=== PATIENT | female | born 1935 | race African-American/Black ===

== ENCOUNTER 2018-11-04 23:23 | Inpatient (IN) | payer MEDICARE, OTHER ==
[~2018-11-04] VITALS: Ht 162.6 cm; Wt 60.3 kg
[~2018-11-04 23:23] MED LIST: ACTOS; AMLODIPINE; ASPIRIN; CLONIDINE; GLIPIZIDE; LASIX; LIPITOR; METFORMIN PO
[2018-11-05] MEDS ORDERED: CLONIDINE 0.1MG TABLET PO ONE (01:15)
[2018-11-05 01:18] LABS: BASOPHILS % 0.9 % (0.0-2.0); EOSINOPHILS % 2.1 % (0.0-5.0); HEMATOCRIT. 36.8 % (36.0-48.0); HEMOGLOBIN. 12.2 g/dL (12.0-16.0); LYMPHOCYTES % 22.3 % (20.0-50.0); MEAN CORPUSCULAR HEMOGLOBIN 28.5 pg (28.0-32.0); MEAN PLATELET VOLUME 6.4 fl (7.4-10.4); MONOCYTES % 6.7 % (2.0-8.0); PLATELET 446 x1000/uL (130-400); RED BLOOD CELL COUNT 4.28 mill/uL (4.2-5.4); RED CELL DISTRIBUTION WIDTH 16.9 % (11.6-14.6)
[2018-11-05 01:24] LABS: CHLORIDE 105 mEq/L (98-107)
[2018-11-05 01:27] LABS: CLARITY URINE CLEAR (CLEAR); COLOR URINE YELLOW (YELLOW); KETONES URINE NEGATIVE (NEGATIVE); LEUKOCYTE ESTERASE URINE TRACE (NEGATIVE); NITRITE URINE NEGATIVE (NEGATIVE); OCCULT BLOOD URINE NEGATIVE (NEGATIVE); PROTEIN URINE NEGATIVE (NEGATIVE); SPECIFIC GRAVITY URINE 1.006 (1.005-1.030); UROBILINOGEN URINE 0.2 E.U./dL (0.2-1.0)
[2018-11-05 01:46] LABS: INR 1.1; PROTHROMBIN TIME 11.3 sec (9.6-11.0)
[2018-11-05] MEDS ORDERED: ASPIRIN 81MG TABLET PO ONE (02:30)
[2018-11-05 07:04] VITALS: BP 162/70
[2018-11-05 08:00] VITALS: BP 157/79
[2018-11-05] MEDS ORDERED: DOCUSATE SODIUM 100MG CAPSULE PO PRN (08:45)
[2018-11-05] MEDS ORDERED: ONDANSETRON HCL 4MG/2ML INJ IV PRN (08:45)
[2018-11-05] MEDS ORDERED: ACETAMINOPHEN 325MG TABLET PO PRN (08:45)
[2018-11-05] MEDS ORDERED: ENOXAPARIN 40MG/0.4ML SYR SUBCUT SCH (09:00)
[2018-11-05] MEDS ORDERED: DEXT 5%/0.45% NACL 1000ML 1,000 ML IV SCH (09:00)
[2018-11-05 09:54] LABS: T4 FREE 1.29 ng/dL (0.76-1.46)
[2018-11-05] MEDS: ASPIRIN 81MG EC TABLET PO SCH (10:02)
[2018-11-05 10:22] VITALS: BP 162/70
[2018-11-05 12:00] VITALS: BP 163/72
[2018-11-05 12:58] LABS: HEMATOCRIT 35.4 % (36.0-48.0); HEMOGLOBIN 11.5 g/dL (12.0-16.0); MEAN CORPUSCULAR HEMOGLOBIN 28.1 pg (28.0-32.0); MEAN CORPUSCULAR VOLUME 86.2 fL (81.0-99.0); PLATELET 437 x1000/uL (130-400); RED CELL DISTRIBUTION WIDTH 16.9 % (11.6-14.6)
[2018-11-05 13:02] LABS: CHLORIDE 105 mEq/L (98-107)
[2018-11-05] MEDS: CLONIDINE 0.1MG TABLET PO PRN (13:10)
[2018-11-05 13:11] LABS: LDL CHOLESTEROL 67 mg/dL (5-100)
[2018-11-05 13:13] LABS: HDL CHOLESTEROL 50 mg/dL (40-59)
[2018-11-05 16:00] VITALS: BP 154/86
[2018-11-05 16:21] LABS: CREATINE KINASE 130 IU/L (26-192)
[2018-11-05 16:22] LABS: CREATINE KINASE MB FRACTION < 1.0 ng/mL (0.5-3.6)
[2018-11-05] MEDS ORDERED: CEPH500T MT (18:00)
[2018-11-05] MEDS ORDERED: LISI-604 MT (18:00)
[2018-11-05] MEDS ORDERED: GABA-531 MT (18:00)
[2018-11-05] MEDS ORDERED: CLON-457 MT (18:00)
[2018-11-05] MEDS ORDERED: SULF-288 MT (18:00)
[2018-11-05 20:00] VITALS: BP 158/84
[2018-11-05] MEDS ORDERED: DEXTROSE 50% WATER 50ML SYRINGE IV PRN (20:45)
[2018-11-05] MEDS: INSULIN LISPRO 100 UNITS/ML SUBCUT SCH (21:00)
[2018-11-05] MEDS: BLOOD SUGAR DIAGNOSTIC STRIP TEST SCH (21:39)
[2018-11-05] MEDS: ENOXAPARIN 60MG/0.6ML SYR SUBCUT SCH (23:14)
[2018-11-06] VITALS: BP 150/72
[2018-11-06 01:22] LABS: CREATINE KINASE 119 IU/L (26-192)
[2018-11-06 01:23] LABS: CREATINE KINASE MB FRACTION < 1.0 ng/mL (0.5-3.6)
[2018-11-06 04:00] VITALS: BP 150/82
[2018-11-06] MEDS: CLONIDINE 0.1MG TABLET PO PRN (05:13)
[2018-11-06] MEDS: BLOOD SUGAR DIAGNOSTIC STRIP TEST SCH ×4 (05:13→22:12)
[2018-11-06 08:00] VITALS: BP 159/77
[2018-11-06] MEDS: INSULIN LISPRO 100 UNITS/ML SUBCUT SCH ×4 (08:10→22:13)
[2018-11-06] MEDS: ASPIRIN 81MG EC TABLET PO SCH (08:50)
[2018-11-06 12:00] VITALS: BP 117/62
[2018-11-06] MEDS: ENOXAPARIN 60MG/0.6ML SYR SUBCUT SCH ×2 (12:34→22:12)
[2018-11-06 16:00] VITALS: BP 132/61
[2018-11-06 20:00] VITALS: BP 134/63
[2018-11-07] VITALS (11 sets, daily range): BP systolic 120–167; BP diastolic 61–87
[2018-11-07] MEDS: BLOOD SUGAR DIAGNOSTIC STRIP TEST SCH ×3 (06:20→17:25)
[2018-11-07] MEDS ORDERED: CEFAZOLIN 1000MG PREMIX 50 ML IV ONE ×2 (07:30→08:33)
[2018-11-07] MEDS: INSULIN LISPRO 100 UNITS/ML SUBCUT SCH ×2 (08:10→12:40)
[2018-11-07] MEDS ORDERED: IOHEXOL-300 100 ML BOTTLE ONE (08:30)
[2018-11-07] MEDS ORDERED: LIDOCAINE HCL 1% 20ML VIAL (Pyxis) INJ ONE (08:30)
[2018-11-07] MEDS ORDERED: SODIUM BICARBONATE 4% (2.4MEQ) 5ML VIAL IV ONE (08:30)
[2018-11-07] MEDS ORDERED: IOHEXOL-300 50 ML BOTTLE IV ONE (08:42)
[2018-11-07] MEDS: ASPIRIN 81MG EC TABLET PO SCH (09:00)
[2018-11-07] MEDS: CLONIDINE 0.1MG TABLET PO PRN (13:03)
[2018-11-07] MEDS: ENOXAPARIN 60MG/0.6ML SYR SUBCUT SCH (14:13)
== END 2018-11-07 18:03 | disposition home health service (06) | DRG 253 ==
LOC: ER 23:23 → 7WST 11-05 02:21 → EDBEDREQTM 11-05 02:24 → EDBEDREQ 11-05 02:24 → ENRESERV 11-05 05:45
PROVIDERS: ADMIT Internal Medicine; ATTEND Internal Medicine
PROC: 06H03DZ Insertion of Intraluminal Device into Inferior Vena Cava, Percutaneous Approach (ICD-10-PCS; principal; 2018-11-07)
PROC: B5191ZA Fluoroscopy of Inferior Vena Cava using Low Osmolar Contrast, Guidance (ICD-10-PCS; 2018-11-07)
PROC: B549ZZA Ultrasonography of Inferior Vena Cava, Guidance (ICD-10-PCS; 2018-11-07)
DX: I82.412 Acute embolism and thrombosis of left femoral vein (principal); E16.2 Hypoglycemia, unspecified; D68.59 Other primary thrombophilia; E87.5 Hyperkalemia; I10 Essential (primary) hypertension; I45.81 Long QT syndrome; D47.3 Essential (hemorrhagic) thrombocythemia; Z79.899 Other long term (current) drug therapy
CPT/HCPCS: 36415; 37191; 71045; 80048; 80061; 82550; 82553; 82962; 83036; 83605; 84439; 84443; 84484; 85027; 93005; 93970; 97161; 99285; C1769; C1880; J0690; J1644; J1650; J3490; Q9967

== ENCOUNTER 2019-02-19 08:19 | Emergency (ER) | payer MEDICARE ==
[~2019-02-19] VITALS: Ht 162.6 cm; Wt 62.0 kg
[~2019-02-19 08:19] MED LIST changes: +CEPH500T MT; +CLON-457 MT; +GABA-531 MT; +LISI-604 MT; +SULF-288 MT
[2019-02-19 10:02] LABS: BASOPHILS % 0.8 % (0.0-2.0); EOSINOPHILS % 0.2 % (0.0-5.0); HEMATOCRIT. 35.5 % (36.0-48.0); LYMPHOCYTES % 7.9 % (20.0-50.0); MEAN CORPUSCULAR HEMOGLOBIN 29.4 pg (28.0-32.0); MEAN CORPUSCULAR VOLUME 87.4 fL (81.0-99.0); MEAN PLATELET VOLUME 6.7 fl (7.4-10.4); MONOCYTES % 3.6 % (2.0-8.0); NEUTROPHILS % 87.5 % (40.0-76.0); PLATELET 417 x1000/uL (130-400); RED BLOOD CELL COUNT 4.07 mill/uL (4.2-5.4); RED CELL DISTRIBUTION WIDTH 15.6 % (11.6-14.6)
[2019-02-19 11:50] LABS: CHLORIDE 100 mEq/L (98-107)
[2019-02-19 12:55] VITALS: BP 137/70
== END 2019-02-19 13:00 | disposition home or self-care (01) ==
LOC: ER 08:19
DX: E11.649 Type 2 diabetes mellitus with hypoglycemia without coma (principal); Z79.82 Long term (current) use of aspirin
CPT/HCPCS: 36415; 82962; 93005; 99284

== ENCOUNTER 2019-02-22 09:55 | Emergency (ER) | payer MEDICARE ==
[~2019-02-22] VITALS: Ht 165.1 cm; Wt 65.0 kg
[2019-02-22 12:41] LABS: BASOPHILS % 0.6 % (0.0-2.0); EOSINOPHILS % 0.6 % (0.0-5.0); HEMATOCRIT. 36.3 % (36.0-48.0); HEMOGLOBIN. 12.3 g/dL (12.0-16.0); LYMPHOCYTES % 27.3 % (20.0-50.0); MEAN CORPUSCULAR HEMOGLOBIN 29.3 pg (28.0-32.0); MEAN CORPUSCULAR VOLUME 86.6 fL (81.0-99.0); MEAN PLATELET VOLUME 6.5 fl (7.4-10.4); MONOCYTES % 7.4 % (2.0-8.0); NEUTROPHILS % 64.1 % (40.0-76.0); PLATELET 444 x1000/uL (130-400); RED CELL DISTRIBUTION WIDTH 15.5 % (11.6-14.6)
[2019-02-22 12:43] LABS: CLARITY URINE CLEAR (CLEAR); COLOR URINE YELLOW (YELLOW); KETONES URINE NEGATIVE (NEGATIVE); LEUKOCYTE ESTERASE URINE TRACE (NEGATIVE); NITRITE URINE NEGATIVE (NEGATIVE); OCCULT BLOOD URINE NEGATIVE (NEGATIVE); PH URINE 5.5 (4.5-8.0); PROTEIN URINE NEGATIVE (NEGATIVE); SPECIFIC GRAVITY URINE 1.015 (1.005-1.030)
[2019-02-22 15:27] VITALS: BP 100/60
== END 2019-02-22 15:45 | disposition home or self-care (01) ==
LOC: ER 10:12
DX: E11.649 Type 2 diabetes mellitus with hypoglycemia without coma (principal); Z79.899 Other long term (current) drug therapy; I10 Essential (primary) hypertension
CPT/HCPCS: 36415; 80048; 82962; 99283

== ENCOUNTER 2019-03-23 11:54 | Emergency (ER) | payer MEDICARE ==
[~2019-03-23] VITALS: Ht 165.1 cm; Wt 75.0 kg
[2019-03-23] MEDS ORDERED: SODIUM CHLORIDE 0.9% 1000ML BAG (SEPSIS BOLUS) IV ONE (12:15)
[2019-03-23 12:56] LABS: CHLORIDE 103 mEq/L (98-107)
[2019-03-23 13:03] LABS: BASOPHILS % 0.4 % (0.0-2.0); EOSINOPHILS % 0.4 % (0.0-5.0); HEMATOCRIT. 33.7 % (36.0-48.0); HEMOGLOBIN. 11.5 g/dL (12.0-16.0); LYMPHOCYTES % 11.9 % (20.0-50.0); MEAN CORPUSCULAR HEMOGLOBIN 29.7 pg (28.0-32.0); MEAN CORPUSCULAR VOLUME 87.3 fL (81.0-99.0); MEAN PLATELET VOLUME 6.7 fl (7.4-10.4); MONOCYTES % 3.1 % (2.0-8.0); NEUTROPHILS % 84.2 % (40.0-76.0); PLATELET 313 x1000/uL (130-400); RED BLOOD CELL COUNT 3.86 mill/uL (4.2-5.4); RED CELL DISTRIBUTION WIDTH 14.3 % (11.6-14.6)
[2019-03-23 13:08] LABS: BETA HYDROXYBUTYRATE 0.1 mMol/L (0.0-0.3)
[2019-03-23 14:38] LABS: CLARITY URINE CLEAR (CLEAR); COLOR URINE YELLOW (YELLOW); KETONES URINE NEGATIVE (NEGATIVE); LEUKOCYTE ESTERASE URINE TRACE (NEGATIVE); NITRITE URINE NEGATIVE (NEGATIVE); OCCULT BLOOD URINE NEGATIVE (NEGATIVE); PROTEIN URINE NEGATIVE (NEGATIVE); UROBILINOGEN URINE 0.2 E.U./dL (0.2-1.0)
[2019-03-23 14:54] LABS: *BARBITURATES SCREEN URINE NEGATIVE (NEGATIVE); *BENZODIAZEPINES SCREEN URINE NEGATIVE (NEGATIVE); *COCAINE SCREEN URINE NEGATIVE (NEGATIVE)
[2019-03-23 14:55] LABS: *AMPHETAMINES SCREEN URINE NEGATIVE (NEGATIVE); CANNABINOID URINE SCREEN NEGATIVE (NEGATIVE); METHADONE URINE SCREEN NEGATIVE (NEGATIVE); OPIATES URINE SCREEN NEGATIVE (NEGATIVE); PHENCYCLIDINE URINE SCREEN NEGATIVE (NEGATIVE)
[2019-03-23] MEDS ORDERED: SODIUM CHLORIDE 0.45% 1,000 ML IV SCH (22:31)
[2019-03-23] MEDS ORDERED: ACETAMINOPHEN 325MG TABLET PO PRN (22:45)
[2019-03-23] MEDS ORDERED: IPRATROPIUM/ALBUTEROL 0.5-3(2.5)MG/3ML NEB HHN PRN (22:45)
[2019-03-23] MEDS ORDERED: CLONIDINE 0.1MG TABLET PO PRN (22:45)
[2019-03-23] MEDS ORDERED: HYDROCODONE/ACETAMINOPHEN 5/325MG TABLET PO PRN (22:45)
[2019-03-23] MEDS ORDERED: ENOXAPARIN 40MG/0.4ML SYR SUBCUT SCH (22:45)
[2019-03-24 00:32] VITALS: BP 132/28
== END 2019-03-24 00:35 | disposition left against medical advice (07) ==
LOC: ER 11:54 → EDBEDREQ 19:07 → ENRESERV 21:23 → CANRESERV 21:23 → ENRESERV 23:50 → CANRESERV 23:50 → CANBEDREQ 03-24 00:06 → ER 03-24 00:35
DX: E11.22 Type 2 diabetes mellitus with diabetic chronic kidney disease (principal); I13.0 Hypertensive heart and chronic kidney disease with heart failure and stage 1 through stage 4 chronic kidney disease, or unspecified chronic kidney disease; N18.9 Chronic kidney disease, unspecified; I50.43 Acute on chronic combined systolic (congestive) and diastolic (congestive) heart failure; D63.1 Anemia in chronic kidney disease; J96.00 Acute respiratory failure, unspecified whether with hypoxia or hypercapnia; F14.10 Cocaine abuse, uncomplicated; G93.41 Metabolic encephalopathy; E87.70 Fluid overload, unspecified; Z79.899 Other long term (current) drug therapy
CPT/HCPCS: 36415; 71045; 80053; 80305; 81003; 82010; 82140; 82962; 83605; 83880; 84145; 84484; 85025; 87040; 87086; 93005; 99284; J7030

== ENCOUNTER 2021-07-08 09:02 | Emergency (ER) | payer MEDICARE ==
[~2021-07-08] VITALS: Ht 154.9 cm; Wt 50.0 kg
[~2021-07-08 09:02] MED LIST changes: -GABA-531 MT; +GABA-532 MT; -LISI-604 MT; +LISI20TA31 MT; +SULF-13 MT; -SULF-288 MT
[2021-07-08] MEDS ORDERED: LIDOCAINE HCL/EPINEPHRINE 1%-EPI 1:100,000 20 ML VIAL INFIL ONE (10:15)
[2021-07-08] MEDS ORDERED: BACITRACIN ZINC OINT UDPKT TOP ONE (10:15)
[2021-07-08 13:20] VITALS: BP 165/82
== END 2021-07-08 13:14 | disposition home or self-care (01) ==
LOC: ER 09:02
DX: S01.111A Laceration without foreign body of right eyelid and periocular area, initial encounter (principal); S01.81XA Laceration without foreign body of other part of head, initial encounter; E11.9 Type 2 diabetes mellitus without complications; I10 Essential (primary) hypertension; Z79.82 Long term (current) use of aspirin; Z79.84 Long term (current) use of oral hypoglycemic drugs; W01.198A Fall on same level from slipping, tripping and stumbling with subsequent striking against other object, initial encounter; Y93.89 Activity, other specified; Y92.012 Bathroom of single-family (private) house as the place of occurrence of the external cause
CPT/HCPCS: 12013; 70450; 93005; 99284; J3490